=== PATIENT | female | born 1985 | race Caucasian/White ===

== ENCOUNTER → 2019-01-10 | Outpatient (CLI) | payer BC ==
[2019-01-10 11:22] LABS: ALT 28 U/L (8-44); AST 26 U/L (13-35); African American GFR (CKD) 110.7 (60.0-200.0); Albumin/Globulin Ratio 2.59 (1.60-3.17); Alkaline Phosphatase 55 U/L (41-126); BUN/Creat Ratio 13.75 Ratio (12.00-20.00); Calcium 9.4 mg/dL (8.7-10.3); Carbon Dioxide 28.1 mmol/L (21.6-31.8); Chloride 105 mmol/L (96-109); Chol/HDL Ratio 2.68; Cholesterol 153 mg/dL (0-200); Globulin 1.7 g/dL (1.6-3.3); Glucose 90 mg/dL (70-110); Potassium 3.8 mmol/L (3.5-5.5); Sodium 139 mmol/L (135-145); Total Bilirubin 0.8 mg/dL (0.3-1.2); Total Protein 6.1 g/dL (6.2-8.2); Triglycerides <50.0 mg/dL (0.0-149.0)
== END | disposition home or self-care (01) ==
LOC: LABWHC1 06:45
DX: Z00.00 Encounter for general adult medical examination without abnormal findings (principal)
CPT/HCPCS: 36415; 80053; 80061; 84443

== ENCOUNTER → 2020-07-20 | Outpatient (CLI) | payer BC ==
--- NOTE | 2020-07-20 15:05 | US ---
EXAMINATION TYPE: Transabdominal DATE OF EXAM: 07/20/2020 2:02 PM COMPARISON: NONE CLINICAL HISTORY: O46.91 bleeding in 1st trimester. bleeding 2 days ago and it was seen today also, G 3P2, cramping EXAM PERFORMED: OBTA/OBTV EXAM MEASUREMENTS: GESTATIONAL AGE / DATING Physician Established: Not yet established Dates by LMP: LMP unknown Dates by First Scan: No previous this is first scan Dates by Current Scan for: (8 weeks/2 days) EDC: 02/27/2021 MATERNAL ANATOMY Uterus: 11.1 x 7.4 x 6.1cm, hypoechoic lesion1.5 x 1.4 x 1.5cm Right Ovary: 3.0 x 2.1 x 2.1cm, hypoechoic lesion = 2.3 x 1.7 x 1.6cm Left Ovary: 3.6 x 1.9 x 2.2cm Post CDS / Adnexa: wnl Presence of free fluid: no Presence of corpus luteal cyst: hypoechoic areas seen bilaterally Presence of subchorionic bleed: small = 0.9 x 0.8 x 0.3cm GESTATION / SURVEY CRL: not seen MSD: 3.0cm (8 weeks/2 days) Yolk Sac (normal less than 6mm): 3mm Date of LMP: mid may Beta HcG (if available): not done IMPRESSION: Fluid-filled sac within the endometrium but no pole. Differential diagnosis would include a nor mal too early to detect. Missed , or ectopic the differential diagnosis. Correlate with serial beta hCG and pelvic ultrasound.
== END | disposition home or self-care (01) ==
LOC: RADUSWWP 13:13
PROVIDERS: ATTEND Obstetrics & Gynecology
DX: O02.1 Missed abortion (principal); Z3A.08 8 weeks gestation of pregnancy
CPT/HCPCS: 76801; 76817

== ENCOUNTER → 2020-08-03 | Outpatient (CLI) | payer BC ==
--- NOTE | 2020-08-04 07:18 | US ---
EXAMINATION TYPE: Transabdominal DATE OF EXAM: 08/03/2020 4:51 PM COMPARISON: NONE CLINICAL HISTORY: Z36 follow up previous abnormal. EXAM PERFORMED: Transabdominal (TA) EXAM MEASUREMENTS: GESTATIONAL AGE / DATING Physician Established: Not yet established Dates by LMP: LMP unknown Dates by First Scan: unable to date by 1st scan Dates by Current Scan for: (8 weeks/3 days) EDC: 03-12-21 MATERNAL ANATOMY Uterus: 11.2 x 7.6 x 8.2cm Right Ovary: obscured by overlying bowel gas Left Ovary: 2.9 x 2.3 x 2.1cm Post CDS / Adnexa: wnl Presence of free fluid: no GESTATION / SURVEY CRL: 1.9 (8 weeks/3 days) Yolk Sac (normal less than 6mm): 2mm Heart Rate: 178 bpm Rhythm: Normal IUP: Viable IUP Date of LMP: unknown Beta HcG (if available): not available IMPRESSION: 1. Single early intrauterine with an average ultrasound gestational age of the 8 weeks and 3 days. [place]-rump length is 1.9 cm. Yolk sac is 2 mm. heart rate is 170 bpm.
== END | disposition home or self-care (01) ==
LOC: RADUSWWP 16:24
PROVIDERS: ATTEND Obstetrics & Gynecology
DX: Z36.89 Encounter for other specified antenatal screening (principal); Z3A.08 8 weeks gestation of pregnancy
CPT/HCPCS: 76801

== ENCOUNTER 2020-12-16 09:15 | Outpatient (CLI) | payer BC ==
[2020-12-16 10:20] VITALS: BP 137/66; PULSE 95; RESP 16; TEMP 98
--- NOTE | 2020-12-17 12:42 | P.MSEPDOC ---
Presenting Problems - Arrival Data Date of Arrival on Unit: 12/16/20 Time of Arrival on Unit: 09:15 Mode of Transport: Ambulatory - Complaint OB-Reason for Admission/Chief Complaint: Rule Out PROM Comment: vaginal pressure, leaking, back pain Medical History - Information : 3 Para: 2 Term: 2 : 0 Abortions: Spontaneous or Elective: 0 Number of Living Children: 2 - Gestational Age Gestational Age by YOHANA (wks/days): 27 Weeks and 5 Days Review of Systems - Review of Systems Constitutional: No problems Breast: No problems ENT: No problems Cardiovascular: No problems Respiratory: No problems Gastrointestinal: No problems Genitourinary: No problems Musculoskeletal: No problems Neurological: No problems Skin: No problems Vital Signs - Temperature Temperature: 98.0 F Temperature Source: Temporal Artery Scan - Pulse Pulse Oximetery Pulse Rate: 95 Pulse Assessment Method: Pulse Oximetry - Respirations Respiratory Rate: 16 Oxygen Delivery Method: Room Air O2 Sat by Pulse Oximetry: 97 - Blood Pressure Right Arm Blood Pressure: 137/66 Blood Pressure Mean: 89 Blood Pressure Source: Automatic Cuff Medical Screen Scoring - Cervical Exam Dilation (cm): 0 Effacement (%): 0 Station: -2 Membranes: Intact - Assessment - Baby A Baseline FHR: 145 Heart Rate - NICHD Category: Category I (Normal) Physician Notification - Physician Notified Physician Notified Date: 12/16/20 Physician Notified Time: 10:05 Physician: Antonia Do New Order Received: Yes - Notification Comment Comment: Dr. Do called at office, report given on maternal and status,. complaints of vaginal pressure, back pain, and vaginal leaking since last night. Amnisure negative, SVE closed/thick/high, NST reactive, no contractions on monitor. Orders to discharge pt home. Maternal Triage Index - Maternal Triage Index Presenting for scheduled procedure w/no complaint: No - Stat/Priority 1 Stat Priority 1: No - Urgent/Priority 2 Urgent Priority 2: Yes Provider Notified: Antonia Do Provider Notified Time: 10:05 Criteria Met for Priority 2: 27 5/7weeks, vaginal pressure, leaking, back pain Disposition - Disposition OB Disposition: Discharge to home Discharge Date: 12/16/20 Discharge Time: 10:08 I agree with the RN Medical Screening Exam: Yes Case reviewed; plan agreed upon as documented in EMR&OBIX.: Yes Diagnosis: FALSE LABOR BEFORE 37 COMPLETED WEEKS OF GEST, THIRD TRI
== END 2020-12-16 10:08 | disposition home or self-care (01) ==
LOC: FBPOP 09:15
PROVIDERS: ATTEND Obstetrics & Gynecology
DX: O47.02 False labor before 37 completed weeks of gestation, second trimester (principal); Z3A.27 27 weeks gestation of pregnancy; Z88.5 Allergy status to narcotic agent
CPT/HCPCS: 59025; 84112; 99213

== ENCOUNTER 2021-01-13 20:41 | Outpatient (CLI) | payer BC ==
[2021-01-13 21:41] VITALS: BP 124/68; PULSE 89; RESP 16; TEMP 97.8
--- NOTE | 2021-01-14 06:49 | P.MSEPDOC ---
Presenting Problems - Arrival Data Date of Arrival on Unit: 01/13/21 Time of Arrival on Unit: 20:41 Mode of Transport: Ambulatory - Complaint OB-Reason for Admission/Chief Complaint: Dizziness Comment: patient had two dizzy spells at work this morning at 0730 and 0930 that lasted about 10 to 15 seconds. patient denies dizziness currently Medical History - Information : 3 Para: 2 Term: 2 : 0 Abortions: Spontaneous or Elective: 0 Number of Living Children: 2 - Gestational Age Gestational Age by YOHANA (wks/days): 31 Weeks and 5 Days Review of Systems - Review of Systems Constitutional: No problems Breast: No problems ENT: No problems Cardiovascular: No problems Respiratory: No problems Gastrointestinal: No problems Genitourinary: No problems Musculoskeletal: No problems Neurological: No problems Skin: No problems Vital Signs - Temperature Temperature: 97.8 F Temperature Source: Oral - Pulse Pulse Oximetery Pulse Rate: 89 Pulse Assessment Method: Pulse Oximetry - Respirations Respiratory Rate: 16 Oxygen Delivery Method: Room Air O2 Sat by Pulse Oximetry: 99 - Blood Pressure Right Arm Blood Pressure: 124/68 Blood Pressure Mean: 86 Blood Pressure Source: Automatic Cuff Medical Screen Scoring - Assessment - Baby A Baseline FHR: 150 Heart Rate - NICHD Category: Category II (Indeterminate) NST: Reactive Physician Notification - Physician Notified Physician Notified Date: 01/13/21 Physician Notified Time: 21:22 Physician: Guilherme Peraza New Order Received: Yes (d/c home and keep appt next week) Maternal Triage Index - Maternal Triage Index Presenting for scheduled procedure w/no complaint: No - Stat/Priority 1 Stat Priority 1: No - Urgent/Priority 2 Urgent Priority 2: No - Prompt/Priority 3 Prompt Priority 3: No - Non-Urgent/Priority 4 Non-Urgent Priority 4: Yes Criteria Met for Priority 4: c/o dizziness this morning at work at 0730 and 0930. no current complants of dizziness Disposition - Disposition OB Disposition: Discharge to home Discharge Date: 01/13/21 Discharge Time: 21:33 I agree with the RN Medical Screening Exam: Yes Case reviewed; plan agreed upon as documented in EMR&OBIX.: Yes Diagnosis: RELATED CONDITIONS, UNSPECIFIED, THIRD TRIMESTER
== END 2021-01-13 21:33 | disposition home or self-care (01) ==
LOC: FBPOP 20:41
PROVIDERS: ATTEND Obstetrics & Gynecology
DX: O26.893 Other specified pregnancy related conditions, third trimester (principal); R42 Dizziness and giddiness; Z3A.31 31 weeks gestation of pregnancy; Z88.5 Allergy status to narcotic agent
CPT/HCPCS: 59025; 99213

== ENCOUNTER 2021-01-22 06:05 | Outpatient (CLI) | payer BC ==
[2021-01-22 07:25] VITALS: BP 104/57; PULSE 81; RESP 16; TEMP 97.6
--- NOTE | 2021-01-22 07:27 | P.MSEPDOC ---
Presenting Problems - Arrival Data Date of Arrival on Unit: 01/22/21 Time of Arrival on Unit: 06:05 Mode of Transport: Ambulatory - Complaint OB-Reason for Admission/Chief Complaint: Rule Out SROM, Decreased Movement Comment: possible leaking after intercoarse 0300 Medical History - Information : 3 Para: 2 Term: 2 : 0 Abortions: Spontaneous or Elective: 0 Number of Living Children: 2 - Gestational Age Gestational Age by YOHANA (wks/days): 33 Weeks and 0 Days Review of Systems - Review of Systems Constitutional: No problems Breast: No problems ENT: No problems Cardiovascular: No problems Respiratory: No problems Gastrointestinal: No problems Genitourinary: No problems Musculoskeletal: No problems Neurological: No problems Skin: No problems Vital Signs - Temperature Temperature: 97.6 F Temperature Source: Oral - Pulse Right Sitting Pulse Rate: 81 Pulse Assessment Method: Automatic Cuff - Respirations Respiratory Rate: 16 Oxygen Delivery Method: Room Air O2 Sat by Pulse Oximetry: 98 - Blood Pressure Right Arm Sitting Blood Pressure: 104/57 Blood Pressure Mean: 72 Blood Pressure Source: Automatic Cuff Medical Screen Scoring - Cervical Exam Membranes: Intact - Assessment - Baby A Baseline FHR: 135 Heart Rate - NICHD Category: Category I (Normal) NST: Reactive Physician Notification - Physician Notified Physician Notified Date: 01/22/21 Physician Notified Time: 06:30 Physician: Stu New Order Received: Yes (pt may be discharged home) Maternal Triage Index - Maternal Triage Index Presenting for scheduled procedure w/no complaint: No - Stat/Priority 1 Stat Priority 1: No - Urgent/Priority 2 Urgent Priority 2: Yes Provider Notified: Stu Provider Notified Time: 06:30 Criteria Met for Priority 2: c/o of decreased movement. Dr Peraza in dept when pt arrived. Strip reviewed. - Prompt/Priority 3 Prompt Priority 3: No - Non-Urgent/Priority 4 Non-Urgent Priority 4: No Disposition - Disposition OB Disposition: Discharge to home, Written follow up instructions reviewed Discharge Date: 01/22/21 Discharge Time: 07:00 I agree with the RN Medical Screening Exam: Yes Case reviewed; plan agreed upon as documented in EMR&OBIX.: Yes Diagnosis: FALSE LABOR BEFORE 37 COMPLETED WEEKS OF GEST, THIRD TRI
== END 2021-01-22 07:00 | disposition home or self-care (01) ==
LOC: FBPOP 06:05
PROVIDERS: ATTEND Obstetrics & Gynecology
DX: O47.03 False labor before 37 completed weeks of gestation, third trimester (principal); Z3A.33 33 weeks gestation of pregnancy; Z88.5 Allergy status to narcotic agent
CPT/HCPCS: 59025; 84112; 99213

== ENCOUNTER 2021-03-01 06:23 | Inpatient (IN) | payer BC ==
[2021-03-01] MEDS ORDERED: AMPICILLIN 2,000 MG in SODIUM CHLORIDE 0.9% 100 ML IVPB STA (07:45)
[2021-03-01] MEDS ORDERED: OXYTOCIN 10 UNIT/ML 1 ML VIAL IM PRN (07:45)
[2021-03-01] MEDS ORDERED: METHYLERGONOVINE 0.2 MG/ML 1 ML AMP IM PRN (07:45)
[2021-03-01] MEDS ORDERED: LIDOCAINE 0.5% (PF) 5 MG/ML (50 ML SDV) SQ PRN (07:45)
[2021-03-01] MEDS ORDERED: OXYTOCIN 30 UNITS/500 ML NS 30 UNIT in SALINE 1 500ML.BAG IV SCH ×2 (07:45→13:00)
[2021-03-01] MEDS ORDERED: TERBUTALINE 1 MG/ML VIAL SQ PRN (07:45)
[2021-03-01] MEDS ORDERED: CARBOPROST TROMETHAMINE 250 MCG/ML 1 ML AMP IM PRN (07:45)
[2021-03-01] MEDS: LACTATED RINGERS 1,000 ML IV SCH ×2 (08:00→10:01)
[2021-03-01] MEDS ORDERED: SODIUM CHLORIDE 0.9% 250 ML BAG ONE (08:51)
[2021-03-01] MEDS ORDERED: fentaNYL (PF) 50 MCG/ML 5 ML AMP ONE (08:51)
[2021-03-01] MEDS ORDERED: ROPIVACAINE 5MG/ML 20ML VIAL ONE (08:51)
[2021-03-01] MEDS ORDERED: AMPICILLIN 1,000 MG in SODIUM CHLORIDE 0.9% 50 ML IVPB SCH (12:00)
[2021-03-01] MEDS ORDERED: ACETAMINOPHEN ORAL SUSP 160 MG/5 ML CUP PO PRN (12:51)
[2021-03-01] MEDS ORDERED: SIMETHICONE 80 MG CHEWABLE PO PRN (12:51)
[2021-03-01] MEDS ORDERED: BENZOCAINE/MENTHOL SPRAY 1 GM/SPRAY AEROSOL TOPICAL PRN (12:51)
[2021-03-01] MEDS ORDERED: diphenhydrAMINE 50 MG/ML 1 ML VIAL IVP PRN ×2 (12:51)
[2021-03-01] MEDS ORDERED: LANOLIN CREAM 5 GM TUBE TOPICAL PRN (12:51)
[2021-03-01] MEDS ORDERED: Rhogam IMMUNE GLOBULIN 1,500 UNIT/1 ML IM ONE (12:51)
[2021-03-01] MEDS ORDERED: diphenhydrAMINE 50 MG CAP PO PRN (12:51)
[2021-03-01] MEDS ORDERED: HYDROCORTISONE 2.5% RECTAL CREAM 30 GM TUBE RECTAL PRN (12:51)
[2021-03-01] MEDS ORDERED: diphenhydrAMINE 25 MG CAP PO PRN (12:51)
[2021-03-01] MEDS ORDERED: ZOLPIDEM 5 MG TAB PO PRN (12:51)
--- NOTE | 2021-03-01 12:54 | P.HPOB ---
History of Present Illness H&P Date: 03/01/21 Chief Complaint: labor 35-year-old presents at 38 weeks and 3 days in labor. Her cervix changed from 3 cm to 5 cm, 90% effaced, -1 station. She is fabio every 3 minutes. heart tones 140 with moderate variability and reactive. Review of Systems All systems: negative Constitutional: Denies chills, Denies fever Eyes: denies blurred vision, denies pain Ears, nose, mouth and throat: Denies headache, Denies sore throat Cardiovascular: Denies chest pain, Denies shortness of breath Respiratory: Denies cough Gastrointestinal: Denies abdominal pain, Denies diarrhea, Denies nausea, Denies vomiting Genitourinary: Denies dysuria, Denies hematuria Musculoskeletal: Denies myalgias Integumentary: Denies pruritus, Denies rash Neurological: Denies numbness, Denies weakness Psychiatric: Denies anxiety, Denies depression Endocrine: Denies fatigue, Denies weight change Past Medical History Past Medical History: Asthma Additional Past Medical History / Comment(s): anemia in the past, migraines. Obstetric history: She's had 2 previous vaginal deliveries. This is her third . Blood type is O-, amylase negative, rubella immune, RPR nonreactive, hepatitis B negative, GBS positive. History of Any Multi-Drug Resistant Organisms: None Reported Past Surgical History: Hernia Repair Additional Past Surgical History / Comment(s): Hernia repair with mesh Past Anesthesia/Blood Transfusion Reactions: Family History of Problems w/ Anesthesia Additional Past Anesthesia/Blood Transfusion Reaction / Comment(s): Pt states that she had a hard time breathing when she woke from anesthesia in the past Past Psychological History: Anxiety, Depression Smoking Status: Never smoker Past Alcohol Use History: None Reported Past Drug Use History: None Reported - Past Family History Mother Family Medical History: Cancer Additional Family Medical History / Comment(s): Stroke Father History Unknown: Yes Medications and Allergies Home Medications Medication Instructions Recorded Confirmed Type Aspirin 81 mg PO DAILY 12/16/20 03/01/21 History Cyanocobalamin (Vitamin B-12) 1,000 mcg PO DAILY 12/16/20 03/01/21 History [Vitamin B-12] Multivit No.40/Iron/Folat1/Dha 1 cap PO DAILY 12/16/20 03/01/21 History [Prenate Essential Softgel] Allergies Allergy/AdvReac Type Severity Reaction Status Date / Time codeine Allergy Nausea Verified 03/01/21 06:38 Exam Osteopathic Statement: *. No significant issues noted on an osteopathic structural exam other than those noted in the History and Physical/Consult. Vital Signs Temp Pulse Resp BP Pulse Ox 03/01/21 08:08 97.3 F L 87 16 132/79 98 03/01/21 07:41 97.3 F L 87 16 132/79 98 Intake and Output 02/28/21 03/01/21 03/01/21 22:59 06:59 14:59 Other: Weight 90.718 kg 90.718 kg Heart: Regular rate and rhythm Lungs: Clear to auscultation bilaterally Abdomen: Soft, nontender Extremities: Negative Homans sign Assessment and Plan (1) Normal labor Current Visit: Yes Status: Acute Code(s): O80 - ENCOUNTER FOR FULL-TERM UNCOMPLICATED DELIVERY; Z37.9 - OUTCOME OF DELIVERY, UNSPECIFIED SNOMED Code(s): 19555229 (2) Positive GBS test Current Visit: Yes Status: Acute Code(s): B95.1 - STREPTOCOCCUS, GROUP B, CAUSING DISEASES [facility] SNOMED Code(s): 411326415 Plan: 1. Antibiotics for GBS prophylaxis 2. Anticipate normal vaginal delivery
--- NOTE | 2021-03-01 12:56 | P.PROBDLV ---
Vaginal Delivery Note - . Vaginal Delivery Note: 35-year-old presents at 38 weeks and 3 days in labor. Her cervix changed from 3 cm to 5 cm, 90% effaced, -1 station. She is fabio every 3 minutes. heart tones 140 with moderate variability and reactive. Epidural was given for pain control. Amniotomy performed at 9:10 AM and clear fluid noted. Her cervix was completely dilated at 12:26 PM. She pushed, delivered a viable female over intact perineum under epidural anesthesia at 12:33 PM. Head delivered OA, anterior shoulder delivered gentle downward guidance for by posterior shoulder and rest of body. Nose and mouth bulb suctioned, cord clamped and cut, infant placed mother's abdomen. Apgars 9, 9, weight 8 lbs. 4 oz. Placenta delivered spontaneously, intact with three-vessel cord at 1235. Vagina, cervix, and perineum were inspected. First-degree midline laceration and a left periurethral laceration were repaired with 3-0 Vicryl. Estimated blood loss 500 mL. Mother and baby in stable condition.
[2021-03-01] MEDS: SENNOSIDES-DOCUSATE SODIUM 1 EACH TAB PO SCH (19:44)
[2021-03-02] MEDS: IBUPROFEN 600 MG TAB PO PRN ×4 (00:08→21:55)
[2021-03-02 04:38] LABS: Basophils % (A) 0 %; Eosinophils # (A) 0.1 k/uL (0-0.7); Eosinophils % (A) 2 %; HCT 33.1 % (34.0-46.0); HGB 11.3 gm/dL (11.4-16.0); Lymphocytes # (A) 1.5 k/uL (1.0-4.8); Lymphocytes % (A) 16 %; MCH 34.3 pg (25.0-35.0); MCHC 34.3 g/dL (31.0-37.0); Macrocytosis Slight; Mean Platelet Volume 11.1; Monocytes # (A) 0.4 k/uL (0-1.0); Monocytes % (A) 5 %; Neutrophils # (A) 6.8 k/uL (1.3-7.7); Neutrophils % (A) 75 %; Platelet Count 169 k/uL (150-450); RBC 3.31 m/uL (3.80-5.40); WBC 9.1 k/uL (3.8-10.6)
[2021-03-02] MEDS: SENNOSIDES-DOCUSATE SODIUM 1 EACH TAB PO SCH ×2 (09:02→19:56)
--- NOTE | 2021-03-02 12:31 | P.DS ---
Providers Date of admission: 03/01/21 07:42 Expected date of discharge: 02/23/21 Attending physician: Antonia Do Primary care physician: Stated None - Discharge Diagnosis(es) (1) Normal labor Current Visit: Yes Status: Resolved (2) Positive GBS test Current Visit: Yes Status: Resolved (3) Normal vaginal delivery Current Visit: Yes Status: Acute Hospital Course: Pt presented for induction of labor. She underwent a normal vaginal delivery without complication. Her pp course was uneventful. She will be discharged home PPD #1 in stable condition to follow up with me in 6 weeks. Plan - Discharge Summary New Discharge Prescriptions: New Ibuprofen [Motrin] 600 mg PO Q6HR PRN #30 tab PRN Reason: Mild Pain (Scale 1 To 3) No Action Aspirin 81 mg PO DAILY Multivit No.40/Iron/Folat1/Dha [Prenate Essential Softgel] 1 cap PO DAILY Cyanocobalamin (Vitamin B-12) [Vitamin B-12] 1,000 mcg PO DAILY Discharge Medication List Aspirin 81 mg PO DAILY 12/16/20 [History] Cyanocobalamin (Vitamin B-12) [Vitamin B-12] 1,000 mcg PO DAILY 12/16/20 [History] Multivit No.40/Iron/Folat1/Dha [Prenate Essential Softgel] 1 cap PO DAILY 12/16/20 [History] Ibuprofen [Motrin] 600 mg PO Q6HR PRN #30 tab 03/02/21 [Rx] Follow up Appointment(s)/Referral(s): Antonia Do DO [Doctor of Osteopathic Medicine] - 04/13/21 10:45 am Discharge Disposition: HOME SELF-CARE
[2021-03-03 08:23] VITALS: BP 150/67; PULSE 71; RESP 14; TEMP 97.8
[2021-03-03] MEDS: IBUPROFEN 600 MG TAB PO PRN (08:56)
[2021-03-03] MEDS: SENNOSIDES-DOCUSATE SODIUM 1 EACH TAB PO SCH (08:56)
== END 2021-03-03 17:30 | disposition home or self-care (01) | DRG 807 ==
LOC: FBPOP 06:23 → 4FBP 07:42
PROVIDERS: ADMIT Obstetrics & Gynecology; ATTEND Obstetrics & Gynecology
PROC: 10E0XZZ Delivery of Products of Conception, External Approach (ICD-10-PCS; principal; 2021-03-01)
PROC: 0HQ9XZZ Repair Perineum Skin, External Approach (ICD-10-PCS; 2021-03-01)
PROC: 10907ZC Drainage of Amniotic Fluid, Therapeutic from Products of Conception, Via Natural or Artificial Opening (ICD-10-PCS; 2021-03-01)
PROC: 4A0HXCZ Measurement of Products of Conception, Cardiac Rate, External Approach (ICD-10-PCS; 2021-03-01)
PROC: 0UQMXZZ Repair Vulva, External Approach (ICD-10-PCS; 2021-03-01)
PROC: 3E033VJ Introduction of Other Hormone into Peripheral Vein, Percutaneous Approach (ICD-10-PCS; 2021-03-01)
DX: O99.824 Streptococcus B carrier state complicating childbirth (principal); Z37.0 Single live birth; F32.A Depression, unspecified; F41.9 Anxiety disorder, unspecified; J45.909 Unspecified asthma, uncomplicated; O70.0 First degree perineal laceration during delivery; O71.82 Other specified trauma to perineum and vulva; O99.344 Other mental disorders complicating childbirth; O99.52 Diseases of the respiratory system complicating childbirth; O26.893 Other specified pregnancy related conditions, third trimester; Z67.41 Type O blood, Rh negative; Z3A.38 38 weeks gestation of pregnancy; Z79.82 Long term (current) use of aspirin; Z87.19 Personal history of other diseases of the digestive system; Z88.5 Allergy status to narcotic agent
CPT/HCPCS: 59025; 85025; 85461; 86850; 86900; 86901; 99213

== ENCOUNTER → 2022-04-20 | Outpatient (CLI) | payer OTHER ==
--- NOTE | 2022-04-20 08:04 | MM ---
Reason for Exam: Clinical finding. Last mammogram was performed 3 year(s) and 2 month(s) ago. Indicated Problems: Lump or thickening of the left side for 2 Month(s). Patient History: Menarche at age 11. First Full-Term at age 19. Premenopausal. Patient has history of breast feeding. Mother had breast cancer, age 48. Last menstrual period: 04/06/2022 Risk Values: Daisy 5 year model risk: 1.0%. NCI Lifetime model risk: 18.4%. Prior Study Comparison: 12/27/2017 Bilateral MG 3D screening mammo w/cad, [facility]. 01/08/2018 Right MG 3D work up w/cad RT, [facility]. 02/21/2019 Right MG 3D diag mammo w/cad RT - 2, [facility]. Tissue Density: The breast tissue is extremely dense which could obscure a lesion on mammography. Findings: Analyzed By CAD. A complete US of all four quadrants of the breast and retro-areolar region were reviewed. No solid or cystic masses are identified.. Chronic nodular density upper outer right breast is unchanged. Ultrasound recommended for palpable abnormality left breast. No suspicious calcifications identified. Overall Assessment: Probably benign, BI-RAD 3 Management: Diagnostic Breast Ultrasound of the left breast. A clinical breast exam by your physician is recommended on an annual basis and results should be correlated with mammographic findings. This exam should not preclude additional follow-up of suspicious palpable abnormalities. Results were given to the patient verbally at the time of exam. Electronically signed and approved by: Figueroa Clifford M.D. Radiologis
--- NOTE | 2022-04-20 08:14 | USB ---
Reason for Exam: Clinical finding. Patient History: Menarche at age 11. First Full-Term at age 19. Premenopausal. Patient has history of breast feeding. Mother had breast cancer, age 48. Risk Values: Daisy 5 year model risk: 1.0%. NCI Lifetime model risk: 18.4%. Prior Study Comparison: 12/27/2017 Bilateral MG 3D screening mammo w/cad, [facility]. 01/08/2018 Right MG 3D work up w/cad RT, [facility]. 02/21/2019 Right MG 3D diag mammo w/cad RT - 2, [facility]. Findings: The lower section of the breast of the left breast, the axilla of the left breast and the retroareolar of the left breast were scanned. Scattered cysts are noted measuring up to 6 mm. Mildly prominent retroareolar ducts are seen. No solid masses are evident.. Overall Assessment: Benign, BI-RAD 2 Management: Screening Mammogram of both breasts in 1 year. A clinical breast exam by your physician is recommended on an annual basis and results should be correlated with mammographic findings. This exam should not preclude additional follow-up of suspicious palpable abnormalities. Results were given to the patient verbally at the time of exam. Electronically signed and approved by: Figueroa Clifford M.D. Radiologis
== END | disposition home or self-care (01) ==
LOC: RADMAMWWP 07:10
PROVIDERS: ATTEND Family Medicine
DX: R92.8 Other abnormal and inconclusive findings on diagnostic imaging of breast (principal); N63.20 Unspecified lump in the left breast, unspecified quadrant; Z80.3 Family history of malignant neoplasm of breast
CPT/HCPCS: 77066; 76642; G0279; 77062

== ENCOUNTER 2022-11-02 09:25 | Emergency (ER) | payer OTHER ==
[2022-11-02 09:29] VITALS: TEMP 98
[2022-11-02] MEDS ORDERED: LORazepam 1 MG TAB PO STA (09:41)
--- NOTE | 2022-11-02 09:52 | ED ---
SOB HPI - General Chief Complaint: Anxiety Stated Complaint: anxiety Time Seen by Provider: 11/02/22 09:30 Source: patient, RN notes reviewed Mode of arrival: ambulatory Limitations: no limitations - History of Present Illness Initial Comments: This is a 37-year-old female who presents to the emergency department for anxiety and shortness of breath. Patient has a history of asthma and was evaluated here about a month ago for shortness of breath. She had an x-ray suggestive of pneumonia and was given prescriptions for a Z-Seven, DuoNeb breathing treatments, and steroids. States that she continues to feel short of breath. She is concerned that the steroids are making her symptoms worse. She is doing the breathing treatments, both a nebulizer and inhaler, and feels like they help to some extent. She had EMS come to her house a couple of days ago, and they noted that she seemed very anxious. States that she does feel anxious, and made two counseling appointments for later today. Denies any chest pain. She is hoping to be started on a nonaddictive medication for management of her anxiety and depression symptoms. Denies any suicidal/homicidal ideations or auditory/visual hallucinations. Denies any fevers, chills, sore throat, cough, chest pain, palpitations, abdominal pain, nausea, vomiting, diarrhea, back pain, or headaches. MD Complaint: shortness of breath, anxiety - Related Data Home Medications Medication Instructions Recorded Confirmed Acetaminophen Tab [Tylenol Tab] 500 - 1,000 mg PO Q6HR PRN 11/02/22 11/02/22 Fluticasone Nasal [place] [Flonase 1 - 2 spr EA NOSTRIL BID PRN 11/02/22 11/02/22 Nasal [place]] Ibuprofen [Motrin Ib] 800 mg PO Q8H PRN 11/02/22 11/02/22 Loratadine [Claritin] 10 mg PO DAILY PRN 11/02/22 11/02/22 Multivitamins, Thera [Multivitamin 1 tab PO DAILY 11/02/22 11/02/22 (formulary)] Vitamin B Complex 1 cap PO DAILY 11/02/22 11/02/22 Vitamin D3(Unknown) 1 tab PO DAILY 11/02/22 11/02/22 Allergies Allergy/AdvReac Type Severity Reaction Status Date / Time codeine AdvReac Nausea Verified 11/02/22 11:22 hydrocodone [From Vicodin] AdvReac Nausea Verified 11/02/22 11:22 Review of Systems ROS Statement: Those systems with pertinent positive or pertinent negative responses have been documented in the HPI. ROS Other: All systems not noted in ROS Statement are negative. Past Medical History Past Medical History: Asthma Additional Past Medical History / Comment(s): anemia in the past, migraines. Obstetric history: She's had 3 previous vaginal deliveries. Blood type is O-, amylase negative, rubella immune, RPR nonreactive, hepatitis B negative, GBS positive. History of Any Multi-Drug Resistant Organisms: None Reported Past Surgical History: Hernia Repair, Hysterectomy Additional Past Surgical History / Comment(s): Hernia repair with mesh. rectals eal repair, bladder sling Past Anesthesia/Blood Transfusion Reactions: Family History of Problems w/ Anesthesia Additional Past Anesthesia/Blood Transfusion Reaction / Comment(s): Pt states that she had a hard time breathing when she woke from anesthesia in the past Past Psychological History: Anxiety, Depression Smoking Status: Never smoker Past Alcohol Use History: None Reported Past Drug Use History: None Reported - Past Family History Mother Family Medical History: Cancer Additional Family Medical History / Comment(s): Stroke Father History Unknown: Yes General Exam Limitations: no limitations General appearance: alert, in no apparent distress Head exam: Present: atraumatic, normocephalic, normal inspection Respiratory exam: Present: normal lung sounds bilaterally. Absent: respiratory distress, wheezes, rales, rhonchi, stridor Cardiovascular Exam: Present: regular rate, normal rhythm, normal heart sounds. Absent: systolic murmur, diastolic murmur, rubs, gallop, clicks Neurological exam: Present: alert, oriented X3, CN II-XII intact Psychiatric exam: Present: anxious, other (tearful). Absent: homicidal ideation, suicidal ideation Skin exam: Present: warm, dry, intact, normal color. Absent: rash Course Vital Signs 11/02/22 11/02/22 09:26 11:17 Temperature 98 F Pulse Rate 98 92 Respiratory 20 18 Rate Blood Pressure 114/60 110/76 O2 Sat by Pulse 97 96 Oximetry Medical Decision Making - Medical Decision Making This is a 37-year-old female who presents to the emergency department for shortness of breath and anxiety. Was pt. sent in by a medical professional or institution? @ -No Did you speak to anyone other than the patient for history? @ -No Did you review nursing and triage notes? @ -Yes, and I agree, it is accurate with regards to the patient's symptoms. Were old charts reviewed? @ -Chest x-ray from 10/04/22 revealing focal airspace disease periphery of the left base suggestive of pneumonia. Differential Diagnosis? @ -Differential Dyspnea: Coronary syndrome, arrhythmia, tamponade, asthma, COPD, pulmonary embolism, pneumonia, pneumothorax, pulmonary effusion, anaphylaxis, diabetic ketoacidosis, flailed chest, pulmonary contusion, diaphragmatic rupture, anemia, n euromuscular, this is not meant to be an all-inclusive list. EKG interpreted by me (3pts min.)? @ -EKG interpreted by me demonstrating the following: Sinus rhythm. Ventricular rate 88 beats per minute, MS interval 133 ms, QRS duration 86 ms, QTC 392 ms. X-rays interpreted by me (1pt min.)? @ -Chest x-ray obtained, my interpretation identifies no localized consolidations or infiltrates. CT interpreted by me (1pt min.)? @ -Not obtained U/S interpreted by me (1pt. min.)? @ -Not obtained What testing was considered but not performed? (CT, X-rays, U/S, labs)? Why? @ -None What meds were considered but not given? Why? @ -Consideration of a DuoNeb breathing treatment. However, patient has been giving herself these regularly at home and did not feel like a repeat was necessary while she was here. Did you discuss the management of the patient with other professionals? @ -No Did you reconcile home meds? @ -No Was smoking cessation discussed for >3mins.? @ -No Was critical care preformed (if so, how long)? @ -No Were there social determinants of health that impacted care today? How? (Homelessness, low income, unemployed, alcoholism, drug addiction, transportation, low edu. Level, literacy, decrease access to med. care, [place] [facility], rehab)? @ -No Was there de-escalation of care discussed even if they declined? (Discuss DNR or withdrawal of care, Hospice)? @ -No What co-morbidities impacted this encounter? (DM, HTN, Smoking, COPD, CAD, Cancer, CVA, Hep., AIDS, mental health diagnosis, sleep apnea, morbid obesity)? @ -Asthma Was patient admitted / discharged? @ -Discharged. Lab work obtained and found to be nonactionable. Covid, influenza, and RSV testing were negative. Chest x-ray revealed no acute process. Patient was notably tearful and anxious on exam. She was given a dose of Ativan with resolution in symptoms. She continued to remain hemodynamically stable and was not visibly short of breath. States that she essentially almost feels like she is forgetting to breathe due to her anxiety. Patient has two counseling appointments scheduled for today for further evaluation and management of her ongoing anxiety and depression. She will continue to use her at home breathing treatments if she finds them beneficial and follow up with her PCP as well. Undiagnosed new problem with uncertain prognosis? @ -None Drug Therapy requiring intensive monitoring for toxicity (Heparin, Nitro, Insu skyler, Cardizem)? @ -None Were any procedures done? @ -None Diagnosis/symptom? @ -Shortness of breath, anxiety Acute, or Chronic, or Acute on Chronic? @ -Acute Uncomplicated (without systemic symptoms) or Complicated (systemic symptoms)? @ -Uncomplicated Side effects of treatment? @ -None Exacerbation, Progression, or Severe Exacerbation] @ -Not applicable Poses a threat to life or bodily function? @ -This anxiety is having an impact on her day to day function. Return precautions reviewed in depth, the patient is instructed to return to the emergency department with any new, worsening, or concerning symptoms. Patient verbalized understanding. This case was discussed in detail with the attending ED physician, Dr. Madison. Presentation, findings, and treatment plan discussed in detail as well. - Lab Data Result diagrams: 11/02/22 10:03 11/02/22 10:03 Lab Results 11/02/22 11/02/22 11/02/22 Range/Units 10:03 10:03 10:03 WBC 5.4 (3.8-10.6) k/uL RBC 4.72 (3.80-5.40) m/uL Hgb 14.1 (11.4-16.0) gm/dL Hct 41.2 (34.0-46.0) % MCV 87.3 (80.0-100.0) fL MCH 29.9 (25.0-35.0) pg MCHC 34.3 (31.0-37.0) g/dL RDW 13.0 (11.5-15.5) % Plt Count 227 (150-450) k/uL MPV 9.3 Neutrophils % 62 % Lymphocytes % 22 % Monocytes % 7 % Eosinophils % 5 % Basophils % 1 % Neutrophils # 3.3 (1.3-7.7) k/uL Lymphocytes # 1.2 (1.0-4.8) k/uL Monocytes # 0.4 (0-1.0) k/uL Eosinophils # 0.3 (0-0.7) k/uL Basophils # 0.0 (0-0.2) k/uL Sodium 139 (137-145) mmol/L Potassium 4.2 (3.5-5.1) mmol/L Chloride 104 (98-107) mmol/L Carbon Dioxide 28 (22-30) mmol/L Anion Gap 7 mmol/L BUN 11 (7-17) mg/dL Creatinine 0.75 (0.52-1.04) mg/dL Est GFR (CKD-EPI)AfAm >90 (>60 ml/min/1.73 sqM) Est GFR (CKD-EPI)NonAf >90 (>60 ml/min/1.73 sqM) Glucose 83 (74-99) mg/dL Plasma Lactic Acid Bridger 1.0 (0.7-2.0) mmol/L Calcium 9.7 (8.4-10.2) mg/dL Total Bilirubin 0.7 (0.2-1.3) mg/dL AST 24 (14-36) U/L ALT 17 (4-34) U/L Alkaline Phosphatase 63 (38-126) U/L Troponin I (0.000-0.034) ng/mL Total Protein 7.4 (6.3-8.2) g/dL Albumin 4.4 (3.5-5.0) g/dL TSH 2.700 (0.465-4.680) mIU/L HCG, Qual Not Detected Influenza Type A (PCR) (Not Detectd) Influenza Type B (PCR) (Not Detectd) RSV (PCR) (Not Detectd) SARS-CoV-2 (PCR) (Not Detectd) 11/02/22 11/02/22 Range/Units 10:03 10:03 WBC (3.8-10.6) k/uL RBC (3.80-5.40) m/uL Hgb (11.4-16.0) gm/dL Hct (34.0-46.0) % MCV (80.0-100.0) fL MCH (25.0-35.0) pg MCHC (31.0-37.0) g/dL RDW (11.5-15.5) % Plt Count (150-450) k/uL MPV Neutrophils % % Lymphocytes % % Monocytes % % Eosinophils % % Basophils % % Neutrophils # (1.3-7.7) k/uL Lymphocytes # (1.0-4.8) k/uL Monocytes # (0-1.0) k/uL Eosinophils # (0-0.7) k/uL Basophils # (0-0.2) k/uL Sodium (137-145) mmol/L Potassium (3.5-5.1) mmol/L Chloride (98-107) mmol/L Carbon Dioxide (22-30) mmol/L Anion Gap mmol/L BUN (7-17) mg/dL Creatinine (0.52-1.04) mg/dL Est GFR (CKD-EPI)AfAm (>60 ml/min/1.73 sqM) Est GFR (CKD-EPI)NonAf (>60 ml/min/1.73 sqM) Glucose (74-99) mg/dL Plasma Lactic Acid [place] (0.7-2.0) mmol/L Calcium (8.4-10.2) mg/dL Total Bilirubin (0.2-1.3) mg/dL AST (14-36) U/L ALT (4-34) U/L Alkaline Phosphatase (38-126) U/L Troponin I <0.012 (0.000-0.034) ng/mL Total Protein (6.3-8.2) g/dL Albumin (3.5-5.0) g/dL TSH (0.465-4.680) mIU/L HCG, Qual Influenza Type A (PCR) Not Detected (Not Detectd) Influenza Type B (PCR) Not Detected (Not Detectd) RSV (PCR) Not Detected (Not Detectd) SARS-CoV-2 (PCR) Not Detected (Not Detectd) - Radiology Data Radiology results: report reviewed, image reviewed Disposition Clinical Impression: Anxiety, Shortness of breath Disposition: HOME SELF-CARE Instructions (If sedation given, give patient instructions): Generalized Anxiety Disorder (ED) Additional Instructions: Return to the emergency department with any new, worsening, or concerning symptoms. Follow up with [facility] as scheduled. You can continue to use the breathing treatments if you find them beneficial. Is patient prescribed a controlled substance at d/c from ED?: No Referrals: None,Stated [REFERRING] - 1-2 days
[2022-11-02 10:18] LABS: Basophils % (A) 1 %; Eosinophils # (A) 0.3 k/uL (0-0.7); Eosinophils % (A) 5 %; HCT 41.2 % (34.0-46.0); HGB 14.1 gm/dL (11.4-16.0); Lymphocytes # (A) 1.2 k/uL (1.0-4.8); Lymphocytes % (A) 22 %; MCH 29.9 pg (25.0-35.0); MCHC 34.3 g/dL (31.0-37.0); MCV 87.3 fL (80.0-100.0); Mean Platelet Volume 9.3; Monocytes # (A) 0.4 k/uL (0-1.0); Monocytes % (A) 7 %; Neutrophils # (A) 3.3 k/uL (1.3-7.7); Neutrophils % (A) 62 %; Platelet Count 227 k/uL (150-450); RBC 4.72 m/uL (3.80-5.40); WBC 5.4 k/uL (3.8-10.6)
--- NOTE | 2022-11-02 10:24 | XR ---
EXAMINATION TYPE: XR chest 2V DATE OF EXAM: 11/02/2022 COMPARISON: 10/04/2022 HISTORY: Chest pain TECHNIQUE: Frontal and lateral views of the chest are obtained. FINDINGS: There is no focal air space opacity. No evidence for pneumothorax. No pleural effusion. The cardiac silhouette size is within normal limits. The osseous structures are grossly intact. IMPRESSION: 1. No acute cardiopulmonary process.
[2022-11-02 10:33] LABS: HCG,Qualitative Serum Not Detected
[2022-11-02 10:42] LABS: ALT 17 U/L (4-34); AST 24 U/L (14-36); African American GFR (CKD) >90 (>60 ml/min/1.73 sqM); Albumin 4.4 g/dL (3.5-5.0); Alkaline Phosphatase 63 U/L (38-126); Anion Gap 7 mmol/L; Blood Urea Nitrogen 11 mg/dL (7-17); Calcium 9.7 mg/dL (8.4-10.2); Carbon Dioxide 28 mmol/L (22-30); Chloride 104 mmol/L (98-107); Glucose 83 mg/dL (74-99); Non-African American GFR(CKD) >90 (>60 ml/min/1.73 sqM); Potassium 4.2 mmol/L (3.5-5.1); Sodium 139 mmol/L (137-145); Total Bilirubin 0.7 mg/dL (0.2-1.3); Total Protein 7.4 g/dL (6.3-8.2)
[2022-11-02 11:19] VITALS: BP 110/76; PULSE 92; RESP 18
== END 2022-11-02 11:24 | disposition home or self-care (01) ==
LOC: EC 09:25
DX: F41.9 Anxiety disorder, unspecified (principal); J45.909 Unspecified asthma, uncomplicated; Z20.822 Contact with and (suspected) exposure to COVID-19; Z79.51 Long term (current) use of inhaled steroids; Z88.5 Allergy status to narcotic agent
CPT/HCPCS: 36415; 71046; 80053; 83605; 84443; 84484; 84703; 85025; 87636; 93005; 99284

== ENCOUNTER → 2023-10-30 | Outpatient (CLI) | payer BC ==
--- NOTE | 2023-11-22 19:41 | MM ---
Reason for Exam: Screening (asymptomatic). Last mammogram was performed 1 year(s) and 6 month(s) ago. Patient History: Menarche at age 11. First Full-Term at age 19. Hysterectomy at age 37. Premenopausal. Patient has history of breast feeding. Mother had breast cancer, age 48. Risk Values: Daisy 5 year model risk: 1.1%. NCI Lifetime model risk: 18.3%. Prior Study Comparison: 01/08/2018 Right MG 3D work up w/cad RT, [facility]. 02/21/2019 Right MG 3D diag mammo w/cad RT - 2, [facility]. 04/20/2022 Bilateral MG 3D diag mammo w/cad [place], [facility]. Tissue Density: The breasts are extremely dense, which lowers the sensitivity of mammography. Findings: Analyzed By CAD. Nodularity along the lateral aspect of the right breast on the CC view middle depth not clearly identified on prior studies. It seems to localize in the inferior aspect of the breast and 3-D images. Chronic nodularity posterior superior right MLO view. Otherwise, no significant change. Overall Assessment: Incomplete: need additional imaging evaluation, BI-RAD 0 Management: Special View Mammogram of the right breast. Diagnostic Breast Ultrasound of the right breast. Additional views to include spot 3-D CC, 3-D CC rolled, and 3-D ML views. Targeted ultrasound right breast lateral half 6:00 to 12:00. [facility] will attempt to contact patient to return for supplemental views and ultrasound if indicated. Electronically signed and approved by: Gabe Mackay M.D. Radiologist
== END | disposition home or self-care (01) ==
LOC: RADMAMWWP 12:00
PROVIDERS: ATTEND Internal Medicine
DX: Z12.31 Encounter for screening mammogram for malignant neoplasm of breast
CPT/HCPCS: 77063; 77067

== ENCOUNTER → 2023-12-04 | Outpatient (CLI) | payer BC ==
--- NOTE | 2023-12-04 14:47 | MM ---
Reason for Exam: Additional evaluation requested from prior study. Last screening mammogram was performed 1 month(s) ago. Patient History: Menarche at age 11. First Full-Term at age 19. Hysterectomy at age 37. Premenopausal. Patient has history of breast feeding. Mother had breast cancer, age 48. Risk Values: Daisy 5 year model risk: 1.1%. NCI Lifetime model risk: 18.3%. Tissue Density: Right: The breasts are extremely dense, which lowers the sensitivity of mammography. Findings: Analyzed By CAD. Pattern appears stable There is a 0.9 cm lobular density approximately 8:00 position 5 cm nipple. This is persistent on compression. Ultrasound is recommended for additional evaluation. Overall Assessment: Incomplete: need additional imaging evaluation, BI-RAD 0 Management: Diagnostic Breast Ultrasound of the right breast. A negative mammogram report should not preclude additional follow up of suspicious palpable abnormalities. Patient should continue monthly self breast exam. A clinical breast exam by your physician is recommended on an annual basis and results should be correlated with mammographic findings. Note on Daisy scores and lifetime risk: 1. A Daisy score greater than 3% is considered moderate risk. If this is the case, consider specialist referral to assess eligibility for a risk reducing agent. 2. If overall lifetime risk for the development of breast cancer is 20% or higher, the patient may qualify for future screening with alternating mammogram and breast MRI. [facility], , 12/04/2023 2:43 PM. Electronically signed and approved by: Toni Stoner D.O. Radiologis
--- NOTE | 2023-12-04 15:09 | USB ---
Reason for Exam: Follow-up at short interval from prior study. Patient History: Menarche at age 11. First Full-Term at age 19. Hysterectomy at age 37. Premenopausal. Patient has history of breast feeding. Mother had breast cancer, age 48. Risk Values: Daisy 5 year model risk: 1.1%. NCI Lifetime model risk: 18.3%. Technique: Method: Targeted. Prior Study Comparison: 02/21/2019 Right MG 3D diag mammo w/cad RT - 2, [facility]. 04/20/2022 Bilateral MG 3D diag mammo w/cad [facility], [facility]. 10/30/2023 Bilateral MG 3D screening mammo w/cad, [facility]. Findings: The lateral section of the breast of the right breast, the axilla of the right breast and the retroareolar of the right breast were scanned. There is an oval density vascularity 7 cm from the nipple approximately 9:00 position. This could correlate with the mammographic finding. Findings appear suggestive for a lymph node. Short-term follow-up recommended in 6 months. Overall Assessment: Probably benign, BI-RAD 3 Management: Diagnostic Mammogram of the right breast in 6 months. A clinical breast exam by your physician is recommended on an annual basis and results should be correlated with mammographic findings. This exam should not preclude additional follow-up of suspicious palpable abnormalities. Results were given to the patient verbally at the time of exam. [facility], , 12/04/2023 3:06 PM. Electronically signed and approved by: Toni Stoner D.O. Radiologis
== END | disposition home or self-care (01) ==
LOC: RADMAMWWP 14:12
PROVIDERS: ATTEND Internal Medicine
DX: R92.8 Other abnormal and inconclusive findings on diagnostic imaging of breast
CPT/HCPCS: 77061; 77065

== ENCOUNTER → 2024-07-09 | Outpatient (CLI) | payer BC | LOC: CPPFTMAIN 16:57 | PROVIDERS: ATTEND Internal Medicine | DX: J45.909 Unspecified asthma, uncomplicated (principal); R92.8 Other abnormal and inconclusive findings on diagnostic imaging of breast; Z88.5 Allergy status to narcotic agent | CPT/HCPCS: 94060; 94726; 94729 ==